=== PATIENT | female | born 1985 | race African-American/Black ===

== ENCOUNTER 2022-02-12 22:42 | Emergency (ER) | payer OTHER ==
[~2022-02-12] VITALS: Ht 162.6 cm; Wt 60.8 kg
[2022-02-12] MEDS ORDERED: IBUPROFEN 600 MG TAB PO STA (23:36)
[2022-02-12] MEDS ORDERED: CEFTRIAXONE 1 GM VIAL IM ONE (23:45)
[2022-02-12] MEDS ORDERED: IBUPROFEN 600 MG TAB ONE (23:50)
[2022-02-12] MEDS ORDERED: LIDOCAINE HCL 1% LOCAL INJ 20 ML VIAL ONE (23:50)
[2022-02-12] MEDS ORDERED: CEFTRIAXONE 1 GM VIAL ONE (23:51)
[2022-02-12 23:56] VITALS: BP 108/54
[2022-02-13] MEDS ORDERED: IBUPROFEN600 MG PO (00:10)
[2022-02-13] MEDS ORDERED: AMOX TR-K CLV1 EAC2 PO (00:10)
== END 2022-02-13 00:20 | disposition home or self-care (01) ==
LOC: FSED 23:26
DX: L98.499 Non-pressure chronic ulcer of skin of other sites with unspecified severity (principal); I88.8 Other nonspecific lymphadenitis; R50.9 Fever, unspecified; F17.210 Nicotine dependence, cigarettes, uncomplicated
CPT/HCPCS: 96372; 99282; J0696; J2001

== ENCOUNTER 2022-05-28 00:05 | Emergency (ER) | payer OTHER ==
[~2022-05-28] VITALS: Ht 162.6 cm; Wt 65.8 kg
[~2022-05-28 00:05] MED LIST: AMOX TR-K CLV1 EAC2 PO; IBUPROFEN600 MG PO
== END 2022-05-28 04:14 | disposition other institution (70) ==
LOC: FSED 00:44
DX: N92.0 Excessive and frequent menstruation with regular cycle (principal); D64.9 Anemia, unspecified; F17.210 Nicotine dependence, cigarettes, uncomplicated
CPT/HCPCS: 80053; 85025; 99284

== ENCOUNTER 2022-06-10 13:45 | Emergency (ER) | payer OTHER ==
[~2022-06-10] VITALS: Ht 162.6 cm; Wt 65.8 kg
[2022-06-10] MEDS ORDERED: SODIUM CHLORIDE 0.9% 1000ML 1,000 ML IV STA (14:01)
[2022-06-10 14:19] LABS: BASOPHILS % 0.7 % (0.0-1.0); EOSINOPHILS # (AUTO) 0.1 (0.0-0.4); EOSINOPHILS % 2.2 % (0.0-6.0); HEMATOCRIT 34.1 % (34.2-44.1); LYMPHOCYTES # (AUTO) 1.6 (1.0-3.2); LYMPHOCYTES % 36.6 % (18.0-39.1); MEAN CORPUSCULAR HEMOGLOBIN 26.4 pg (28-32); MEAN CORPUSCULAR HGB CONC 29.3 g/dL (31-35); MONOCYTES # (AUTO) 0.3 (0.2-0.8); MONOCYTES % 6.7 % (4.4-11.3); NEUTROPHILS # (AUTO) 2.4 (2.1-6.9); NEUTROPHILS % 53.6 % (38.7-80.0); PLATELET COUNT 455 x10e3/uL (140-360); RED BLOOD COUNT 3.79 x10e6/uL (3.6-5.1); RED CELL DISTRIBUTION WIDTH 26.8 % (11.7-14.4)
[2022-06-10 14:38] LABS: INR 1.24; PROTHROMBIN TIME 16.7 seconds (11.9-14.5)
[2022-06-10 14:39] LABS: PARTIAL THROMBOPLASTIN TIME 33.8 seconds (23.8-35.5)
[2022-06-10 14:48] LABS: ALANINE AMINOTRANSFERASE 9 IU/L (0-55); ALBUMIN 3.8 g/dL (3.5-5.0); ALBUMIN/GLOBULIN RATIO 1.4 (0.8-2.0); ALKALINE PHOSPHATASE 43 IU/L (40-150); ANION GAP 14.7 mmol/L (8-16); BLOOD UREA NITROGEN 14 mg/dL (7-26); BUN/CREATININE RATIO 21 (6-25); CALCIUM 8.8 mg/dL (8.4-10.2); CARBON DIOXIDE 20 mmol/L (22-29); CHLORIDE 109 mmol/L (98-107); CREATININE, SERUM 0.68 mg/dL (0.57-1.11); GLUCOSE 107 mg/dL (74-118); POTASSIUM 3.7 mmol/L (3.5-5.1); SODIUM 140 mmol/L (136-145)
== END 2022-06-10 15:27 | disposition home or self-care (01) ==
LOC: ER 14:02
DX: N92.0 Excessive and frequent menstruation with regular cycle (principal); D25.9 Leiomyoma of uterus, unspecified; D64.9 Anemia, unspecified
CPT/HCPCS: 36415; 80053; 84702; 85025; 85610; 85730; 86850; 86900; 99283; J7030